=== PATIENT | male | born 1970 | race Caucasian/White ===

== ENCOUNTER 2019-04-27 10:01 | Emergency (ER) | payer SELFPAY ==
--- NOTE | ~2019-04-27 | XR_ITS ---
XR foot LT 2V 04/27/2019 12:30 Indication: Fracture reduction Procedure: 2 views left foot Comparison: 04/27/2019 Findings: Mildly displaced extra-articular fracture left fifth proximal phalanx with mild lateral ang ulation. No significant change to alignment. No other fractures. Mild soft tissue swelling. Impression: 1: Stable alignment of mildly displaced extra-articular fracture left fifth proximal phalanx. Reviewed, dictated and finalized at location A. Impression: 1: Stable alignment of mildly displaced extra-articular fracture left fifth pro ximal phalanx.
--- NOTE | ~2019-04-27 | XR_ITS ---
XR foot LT 2V 04/27/2019 10:56 Indication: Fifth toe injury with pain Procedure: 2 views left foot Comparison: No prior studies for comparison. Findings: There is a mildly displaced extra-articular fracture fifth proximal phalanx with mild later al angulation. No other fracture is identified. Mild soft tissue swelling. No foreign bodies. Lisfran c joint intact. Impression: 1: Mildly displaced extra-articular fracture left fifth proximal phalanx with lateral angulation. Reviewed, dictated and finalized at location A. Impression: 1: Mildly displaced extra-articular fracture left fifth proximal phalanx with l ateral angulation.
[2019-04-27 10:05] VITALS: BP 128/82; PULSE 69; RESP 14; TEMP 36.5; O2SAT 99
--- NOTE | 2019-04-27 10:36 | ED.GENADULT ---
HPI - General Adult General Chief complaint: Extremity Injury, Lower Stated complaint: hurt L most distal toe History of Present Illness HPI narrative: Leif is a previously healthy 49M that hit his toe on the bed this morning and had pain and deformity of the 5th toe. He had no other injuries, did not hit his head, and had no LOC. Related Data Home Medications Medication Instructions Recorded Confirmed bupropion HCl [Wellbutrin SR] 100 mg PO BID 04/27/19 04/27/19 omeprazole 40 mg PO DAILY 04/27/19 04/27/19 Allergies Allergy/AdvReac Type Severity Reaction Status Date / Time No Known Allergies Allergy Verified 04/27/19 10:45 Review of Systems Constitutional: Constitutional: Reports no additional constitutional complaints Eyes: Eyes: Reports no additional eye complaints ENT: Reports system reviewed and no additional complaints, except as documented Cardiovascular: Cardiovascular: Reports no additional cardiovascular complaints Respiratory: Respiratory: Reports no additional respiratory complaints Gastrointestinal: Gastrointestinal: Reports no additional gastrointestinal complaints Genitourinary: Genitourinary: Reports no additional male genitourinary complaints Musculoskeletal: Musculoskeletal: Reports as per HPI Integumentary/Breasts: Skin/Breast: Reports system reviewed and no additional complaints, except as docu Neurologic: Reports system reviewed and no additional complaints, except as documented Psychiatric: Psychiatric: Reports no additional psychiatric complaints Endocrine: Endocrine: Reports no additional endocrine complaints Hematologic/Lymphatic: Hematologic/Lymphatic: Reports no additional hematologic/lymphatic complaints Allergic/Immunologic: Allergic/Immunologic: Reports no additional allergic/immunologic complaints [facility] Social History Social History Gender identity (if verbalized by the patient): Male Exam Const: General: no acute distress and alert Orientation/consciousness: patient oriented x3 Limitations: No altered mental status HENMT: Other: normocephalic, atraumatic Eyes: Conjunctivae: conjunctivae normal Pupils: Equal, round and reactive pupils present Neck: Neck: normal visual inspection Resp: Effort & Inspection: normal respiratory effort Cardio: Rate: regular rate GI: GI Palp: Yes Soft to palpation and No Tenderness to palpation present (GI) Skin: General skin exam: normal color Rashes: no rashes Neuro: General: patient oriented x3 and moves all extremities Extrem: Other: Left 5th toe was swollen, tender and had ecchymosis, and lateral deviation. Sensation and motor control was intact. Course Course Emergency Course: Leif was seen and evaluated. Gave toradol for pain and ordered radiographs. XR foot LT 2V 04/27/2019 10:56 Indication: Fifth toe injury with pain Procedure: 2 views left foot Comparison: No prior studies for comparison. Findings: There is a mildly displaced extra-articular fracture fifth proximal phalanx with mild lateral angulation. No other fracture is identified. Mild soft tissue swelling. No foreign bodies. Lisfranc joint intact. Impression: 1: Mildly displaced extra-articular fracture left fifth proximal phalanx with lateral angulation. Next the digit was numbed using lidocaine without epi and it was attempted to be reduced (see procedures for details) XR foot LT 2V 04/27/2019 12:30 Indication: Fracture reduction Procedure: 2 views left foot Comparison: 04/27/2019 Findings: Mildly displaced extra-articular fracture left fifth proximal phalanx with mild lateral angulation. No significant change to alignment. No other fractures. Mild soft tissue swelling. Impression: 1: Stable alignment of mildly displaced extra-articular fracture left fifth proximal phalanx. Reduction had minimal reduction but was stable with mild displacement so he was discharged to follow up with his regula
[2019-04-27] MEDS: KETOROLAC (*BKC) 60 MG/2 ML VIAL 30 MG IM (11:07)
[2019-04-27 13:05] VITALS: RESP 16
== END 2019-04-27 13:10 | disposition home or self-care (01) ==
PROVIDERS: Emergency Provider Family Medicine
DX: S92.502A Displaced unspecified fracture of left lesser toe(s), initial encounter for closed fracture (principal); W22.8XXA Striking against or struck by other objects, initial encounter
CPT/HCPCS: 28515; 73620; 96372; 99283; 99285; J1885

== ENCOUNTER 2022-06-16 12:00 | Emergency (ER) | payer OTHER, SELFPAY ==
[2022-06-16 12:00] VITALS: BP 126/84; PULSE 100; RESP 18; TEMP 37.7; O2SAT 97
--- NOTE | 2022-06-16 12:16 | ED.DENTAL ---
HPI - Dental/Oral General Chief complaint: Dental/Oral Stated complaint: throat pain Time Seen by Provider: 06/16/22 12:11 Source: patient Mode of arrival: ambulatory History of Present Illness HPI Narrative: this is a 52-year-old gentleman with chronic tooth decay and has a left lower molar cracked tooth with surrounding gum inflammation and tooth decay with tender left jaw and submandibular gland enlargement and tenderness with drainage in the tooth area with some pain he rates about a 5/10 has taken [id number] preparations has not seen the dentist for his chronic tooth decay. Currently there is low-grade fever and chills with no nausea vomiting no shortness of breath. MD Complaint: tooth pain Location: Tooth # Teeth map: 1. Cracked decayed molar with surrounding gum inflammation Onset (ago): week(s) Duration: constant Severity: moderate Severity scale (1-10): 5 Relieving factors: NSAIDs Exacerbating factors: chewing, cold, drinking fluids and swallowing Context: history of dental caries, trauma (mechanism) and poor dental care Associated symptoms: gum swelling Related Data Home Medications Medication Instructions Recorded Confirmed bupropion HCl 100 mg tablet,12 hr 100 mg PO BID 04/27/19 06/16/22 sustained-release (Wellbutrin SR) omeprazole 40 mg capsule,delayed 40 mg PO DAILY 04/27/19 06/16/22 release Allergies Allergy/AdvReac Type Severity Reaction Status Date / Time No Known Allergies Allergy Verified 06/16/22 12:10 Review of Systems Review of Systems: All systems reviewed & are unremarkable except as noted in HPI and below PMFSH Past Medical History Medical History Dental decay Social History Social History Gender identity (if verbalized by the patient): Male Exam Const: General: healthy appearing Nutritional Appearance: well nourished Orientation/consciousness: patient oriented x3 Limitations: no limitations HENMT: Head: normal to inspection Teeth and gingiva: abnormal tooth and associated gingiva Throat: posterior oropharynx normal Eyes: Conjunctivae: conjunctivae normal EOM: EOMs intact bilaterally Neck: Neck: normal visual inspection Chest: Chest palpation & inspection: normal inspection of the chest Resp: Effort & Inspection: normal respiratory effort Cardio: Rate: regular rate Rhythm: regular rhythm GI: Auscultation: normal bowel sounds : General: Yes bladder normal to palpation Skin: General skin exam: normal color Rashes: no rashes Extrem: General: normal to inspection Psych: Mental Status: mental status grossly normal Affect: normal affect Course Course Emergency Course: patient evaluated and a dose of IM ceftriaxone was administered and antibiotics sent to his pharmacy and advised follow-up with his dentist. Critical Care Time Critical Care Time Critical Care Time: No Discharge Plan Discharge Clinical Impression: Dental caries, Dental abscess, Toothache, Fracture of tooth Patient Disposition: Home, Self-Care Condition: Stable Instructions: Antibiotic Form, Dental Abscess (ED) Additional Instructions: Take medicine as prescribed and follow-up with dentist as soon as possible for further evaluation and treatment. Prescriptions: New amoxicillin 500 mg tablet 500 mg PO TID Qty: 30 0RF No Action omeprazole 40 mg Capsule,Delayed Release(Dr/Ec) 40 mg PO DAILY bupropion HCl [Wellbutrin SR] 100 mg Tablet Sustained-Release 12 Hr 100 mg PO BID Follow-up/Referrals: UNKNOWN,DOCTOR [Primary Care Provider] - Stand Alone Forms: Work/School Release IP Time of Disposition: 12:21
[2022-06-16] MEDS: cefTRIAXone 1 GM, LIDOCAINE HCL 1% LOCAL INJ 2.1 ML IM (12:23)
== END 2022-06-16 12:28 | disposition home or self-care (01) ==
LOC: CHSED 12:23
PROVIDERS: Emergency Provider Emergency Medicine
DX: K02.9 Dental caries, unspecified (principal); K04.7 Periapical abscess without sinus; S02.5XXA Fracture of tooth (traumatic), initial encounter for closed fracture; X58.XXXA Exposure to other specified factors, initial encounter
CPT/HCPCS: 96372; 99283; J0696

== ENCOUNTER 2023-03-28 09:37 | Emergency (ER) | payer OTHER, SELFPAY ==
[2023-03-28 09:41] VITALS: BP 129/81; PULSE 96; RESP 19; TEMP 36.6; O2SAT 98
--- NOTE | 2023-03-28 09:45 | ED.GENADULT ---
HPI - General Adult General Chief complaint: Dental/Oral Stated complaint: L side face swelling/tooth abcess Time Seen by Provider: 03/28/23 09:41 History of Present Illness HPI narrative: Jon presented to the ED with 5 days of worsening right lower molar pain. It is worse with eating but is becoming more constant. No dysphagia, fevers, chills or dyspnea. Related Data Home Medications Medication Instructions Recorded Confirmed bupropion HCl 100 mg tablet,12 hr 100 mg PO BID 04/27/19 03/28/23 sustained-release (Wellbutrin SR) Allergies Allergy/AdvReac Type Severity Reaction Status Date / Time No Known Allergies Allergy Verified 06/16/22 12:10 Review of Systems Review of Systems: All systems reviewed & are unremarkable except as noted in HPI and below PMFSH Past Medical History Medical History Dental decay Social History Social History Gender identity (if verbalized by the patient): Male Exam Const: General: cooperative, healthy appearing, comfortable, no acute distress, well developed, alert, awake and Physically active Orientation/consciousness: oriented to person, oriented to place and oriented to time HENMT: Head: normal to inspection, normocephalic and atraumatic Ears: hearing grossly normal bilaterally and external ears normal Face/Nose/Sinus: Normal external nose present Other: poor dentition. Right lower molars were very TTP and had erythema at the base Eyes: General: appearance normal, both eyes and all related structures Periorbital: periorbital findings normal Sclera: sclerae normal Pupils: Equal, round and reactive pupils present Neck: Neck: normal visual inspection Chest: Chest palpation & inspection: normal inspection of the chest Resp: Effort & Inspection: normal respiratory effort, able to speak in complete sentences and no respiratory distress Skin: General skin exam: normal color and no rashes or lesions noted Neuro: General: oriented to person, oriented to place and oriented to time Cranial nerves: Yes Equal, round and reactive pupils present Extrem: General: normal to inspection Course Course Emergency Course: Given Augmentin and Toradol Vital Signs Vital signs: Vital Signs Temperature 97.8 F 03/28/23 09:41 Pulse Rate 96 03/28/23 09:41 Respiratory Rate 19 03/28/23 09:41 Blood Pressure 129/81 03/28/23 09:41 Pulse Oximetry 98 03/28/23 09:41 Oxygen Delivery Room Air 03/28/23 09:41 Temperature 97.8 F 03/28/23 09:41 Pulse Rate 96 03/28/23 09:41 Respiratory Rate 03/28/23 09:41 Blood Pressure 129/81 03/28/23 09:41 Pulse Oximetry 98 03/28/23 09:41 Oxygen Delivery Room Air 03/28/23 09:41 Medical Decision Making Vital Signs Vital Signs: Vital Signs Temperature 97.8 F 03/28/23 09:41 Pulse Rate 96 03/28/23 09:41 Respiratory Rate 03/28/23 09:41 Blood Pressure 129/81 03/28/23 09:41 Pulse Oximetry 98 03/28/23 09:41 Oxygen Delivery Room Air 03/28/23 09:41 Temperature 97.8 F 03/28/23 09:41 Pulse Rate 96 03/28/23 09:41 Respiratory Rate 03/28/23 09:41 Blood Pressure 129/81 03/28/23 09:41 Pulse Oximetry 98 03/28/23 09:41 Oxygen Delivery Room Air 03/28/23 09:41 Discharge Plan Discharge Clinical Impression: Infected dental caries Patient Disposition: Home, Self-Care Condition: Stable Instructions: Antibiotic Form Prescriptions: New amoxicillin-pot clavulanate [Augmentin] 500-125 mg tablet 1 tablet PO TID Qty: 15 0RF No Action bupropion HCl [Wellbutrin SR] 100 mg Tablet Sustained-Release 12 Hr 100 mg PO BID Follow-up/Referrals: Mg,Drew Bob, [employer] [Primary Care Provider] - Stand Alone Forms: Work/School Release IP
[2023-03-28] MEDS: KETOROLAC 30 MG/ML VIAL (*BKC) IM (09:58)
[2023-03-28] MEDS: AMOXICILLIN/CLAVULANATE K 875-125 MG TAB 1 TABLET PO (09:58)
== END 2023-03-28 10:15 | disposition home or self-care (01) ==
LOC: CHSED 10:14
PROVIDERS: Emergency Provider Family Medicine; PCP Nurse Practitioner Family
DX: K02.9 Dental caries, unspecified (principal); Z79.899 Other long term (current) drug therapy
CPT/HCPCS: 96372; 99283; A9270; J1885